=== PATIENT | male | born 1995 | race Caucasian/White ===

== ENCOUNTER 2021-12-22 23:51 | Emergency (ER) | payer SELFPAY ==
--- NOTE | ~2021-12-22 | CT_ITS ---
EXAMINATION: CT abdomen pelvis wo con DATE: 12/23/2021 02:47 INDICATION: Epigastric pain. Nausea and vomiting. TECHNIQUE: Computed tomography (CT) of the abdomen and pelvis was performed without intravenous contr ast. The dose-length product was 567.98 mGy-cm. Automated exposure control and iterative reconstruction technique were employed. COMPARISON: None. FINDINGS: Lung bases are unremarkable. Heart size normal. No significant pleural or pericardial effus ion. Lung bases are unremarkable. The liver, spleen, pancreas, adrenal glands and kidneys are unremarkable. Gallbladder is present. Non obstructive bowel gas pattern. No abnormal pelvic masses or fluid collections. Normal appendix. No ly mphadenopathy. No significant vascular abnormality. No acute osseous abnormality. IMPRESSION: 1. No acute abnormality of the abdomen. Reviewed, dictated and finalized at location A.
[2021-12-22 23:53] VITALS: BP 139/89; PULSE 58; RESP 18; TEMP 36.7; O2SAT 99
[2021-12-23 01:25] LABS: Appearance Urine Cloudy (Clear); Basophils Percent Auto 0.3 % (0.2-1.2); Bilirubin Urine Negative (Negative); Blood Urine Negative (Negative); Eosinophils Absolute Auto 0.2 K/mm3 (0-0.3); Eosinophils Percent Auto 1.6 % (0-4.4); Glucose Urine UA Negative (Negative); Hematocrit 46.8 % (42.0-52.0); Hemoglobin 15.7 g/dL (14.0-18.0); Immature Granulocyte Absolute 0.04 K/mm3 (0.00-0.031); Immature Granulocyte Percent A 0.3 % (0-0.5); Ketones Urine Negative (Negative); Leukocyte Esterase Ur Negative LEU/UL (Negative); Lymphocytes Absolute Auto 2.19 K/mm3 (0.9-3.2); Lymphocytes Percent Auto 18.9 % (18.3-44.2); Mean Corpuscular HGB Conc 33.5 g/dl (32-36); Mean Corpuscular Hemoglobin 29.4 pg (26-34); Mean Corpuscular Volume 87.6 fl (80-100); Mean Platelet Volume 9.3 fl (7.4-10.4); Monocytes Absolute Auto 0.7 K/mm3 (0.1-0.6); Neutrophils Absolute Auto 8.4 K/mm3 (1.3-6.7); Neutrophils Percent Auto 72.9 % (45.5-73.1); Nitrate Urine Negative (Negative); Platelet Count Result 333 k/mm3 (150-375); Protein Urine Negative (Negative); Red Blood Count 5.34 M/mm3 (4.6-6.20); Red Cell Distribution Width 12.4 % (11.5-14.5); Urobilinogen Urine 0.2 mg/dL (<2.0); White Blood Count 11.6 K/mm3 (4.5-10.0); pH Urine 7.5 (5.0-9.0)
[2021-12-23 01:26] LABS: Add Urine Microscopic? YES; Color Urine Light Yellow (Yellow)
[2021-12-23 01:31] LABS: Bacteria Urine 3+ /hpf; Mucus Urine Rare /lpf
[2021-12-23 01:43] LABS: Alanine Aminotransferase 39 U/L (6-50); Alkaline Phosphatase 85 U/L (38-126); Anion Gap 7 mmol/L (8-16); Aspartate Amino Transferase 36 U/L (17-59); Bilirubin,Total 0.3 mg/dL (0.2-1.3); Blood Urea Nitrogen 15 mg/dL (9-20); Calcium 9.5 mg/dL (8.4-10.2); Carbon Dioxide 28 mmol/L (22-30); Chloride 105 mmol/L (98-107); Estimated CRCL calculation 116 ml/min; Estimated Glomerular Filt Rate > 60; Glucose 97 mg/dL (65-110); Lipase 101 U/L (23-300); Potassium 4.1 mmol/L (3.4-5.0); Sodium 140 mmol/L (137-145)
--- NOTE | 2021-12-23 05:40 | ED.GENADULT ---
HPI - General Adult General Chief complaint: Abdominal Pain Stated complaint: abdominal pain Time Seen by Provider: 12/23/21 00:48 History of Present Illness HPI narrative: Patient is a 26-year-old male who presents ER with epigastric abdominal pain. Associate with nausea and vomiting. Feels like he has burning that goes into his throat. It moves over to the left upper quadrant as well. No fevers or chills or sweats. No urinary frequency urgency or dysuria. No known sick contacts. Has been without diarrhea. Reports this is happened to him intermittently for couple of weeks. Has increased concern due to mother dying at a young age of gastric cancer. Related Data Allergies Allergy/AdvReac Type Severity Reaction Status Date / Time No Known Allergies Allergy Unverified 11/28/17 23:29 Review of Systems Review of Systems: All systems reviewed & are unremarkable except as noted in HPI and below Constitutional: Constitutional: Denies chills, Denies fatigue and Denies fever(s) ENT: Denies nasal congestion and Denies sore throat Cardiovascular: Cardiovascular: Denies chest pain, Denies rapid heart rate and Denies radiating jaw, neck or arm pain Respiratory: Respiratory: Denies cough and Denies dyspnea Gastrointestinal: Gastrointestinal: Reports abdominal pain, Reports heartburn, Denies diarrhea, Reports nausea and Reports vomiting Genitourinary: Genitourinary: Denies hematuria, Denies dysuria, Denies penile discharge and Denies testicular pain PMFSH Past Medical History Medical History (Updated 12/23/21 @ 05:50 by Dayne Silva MD) Healthy adult male Surgical History Surgical History (Updated 12/23/21 @ 05:50 by Dayne Silva MD) No pertinent past surgical history Social History Social History (Updated 12/23/21 @ 05:51 by Dayne Silva MD) Social History: Occasional alcohol. Smoking status: Never smoker Exam Narrative: GENERAL: Well-appearing, well-nourished, and in no acute distress. HEAD: Normocephalic, atraumatic. ENT: Mucous membranes moist. CHEST: Clear to auscultation. No respiratory distress. HEART: Regular rate and rhythm. Normal peripheral pulses. ABDOMEN: Soft, nontender, nondistended. EXTREMITIES: Normal range of motion. No edema. SKIN: Warm, dry, no rash. NEURO: Alert and oriented x3. PSYCH: Normal mood and affect. Course Course Emergency Course: Patient resting comfortably. No medications required here. Abdomen is soft and nontender. Patient denies any STI risk or dysuria. He is circumcised. May have an infection that is causing intermittent nausea so we will treat him with antibiotics. Recommend follow-up with a primary care physician. Vital Signs Vital signs: Vital Signs Temperature 98.1 F 12/22/21 23:53 Pulse Rate 58 L 12/22/21 23:53 Respiratory Rate 18 12/22/21 23:53 Blood Pressure 139/89 12/22/21 23:53 Pulse Oximetry 99 12/22/21 23:53 Temperature 98.1 F 12/22/21 23:53 Pulse Rate 58 L 12/22/21 23:53 Respiratory Rate 18 12/22/21 23:53 Blood Pressure 139/89 12/22/21 23:53 Pulse Oximetry 99 12/22/21 23:53 Medical Decision Making Vital Signs Vital Signs: Vital Signs Temperature 98.1 F 12/22/21 23:53 Pulse Rate 58 L 12/22/21 23:53 Respiratory Rate 18 12/22/21 23:53 Blood Pressure 139/89 12/22/21 23:53 Pulse Oximetry 99 12/22/21 23:53 Temperature 98.1 F 12/22/21 23:53 Pulse Rate 58 L 12/22/21 23:53 Respiratory Rate 18 12/22/21 23:53 Blood Pressure 139/89 12/22/21 23:53 Pulse Oximetry 99 12/22/21 23:53 Lab Data Result diagrams: 12/23/21 01:15 12/23/21 01:15 Labs: Lab Results 12/23/21 12/23/21 12/23/21 Range/Units 01:15 01:15 01:15 WBC 11.6 H (4.5-10.0) K/mm3 RBC 5.34 (4.6-6.20) M/mm3 Hgb 15.7 (14.0-18.0) g/dL Hct 46.8 (42.0-52.0) % MCV 87.6 (80-100) fl MCH 29.4 (26-34) pg MCHC 33.5 (32-36) g/dl
[2021-12-23 05:50] VITALS: BP 124/80; PULSE 60; RESP 16; TEMP 36.5; O2SAT 99
== END 2021-12-23 05:57 | disposition home or self-care (01) ==
PROVIDERS: Physician Assistant; Emergency Provider Emergency Medicine
DX: N39.0 Urinary tract infection, site not specified (principal); R11.2 Nausea with vomiting, unspecified
CPT/HCPCS: 36415; 74176; 80053; 81001; 83690; 85025; 87086; 99284